=== PATIENT | male | born 1990 | race African-American/Black ===

== ENCOUNTER 2018-08-19 18:04 | Emergency (ER) | payer SELFPAY ==
[2018-08-19] MEDS: DIPHTH/TET/ACEL PERTUSS (ADULT) 0.5 ML VIAL IM* (21:41)
[2018-08-19] MEDS: HYDROCODONE/APAP (5/325) TAB PO (21:41)
[2018-08-19] MEDS: LIDOCAINE 2%/EPI MPF (SDV) 20 ML VIAL INJ (21:56)
[2018-08-19] MEDS: CEFAZOLIN 1 GM/50 ML (PMX) 50 ML IVPB (23:05)
[2018-08-20] MEDS: ONDANSETRON (ODT) 4 MG TAB ODT (01:21)
== END 2018-08-20 01:24 | disposition home or self-care (01) ==
LOC: FTE 08-20 01:24
DX: S62.647A Nondisplaced fracture of proximal phalanx of left little finger, initial encounter for closed fracture (principal); S61.217A Laceration without foreign body of left little finger without damage to nail, initial encounter; V13.9XXA Unspecified pedal cyclist injured in collision with car, pick-up truck or van in traffic accident, initial encounter; Z23 Encounter for immunization
CPT/HCPCS: 12002; 73130-LT; 73140; 90471; 90715; 96374; 99284-25